=== PATIENT | female | born 1960 | race Caucasian/White ===

== ENCOUNTER 2021-12-24 20:13 | Observation (INO) ==
[2021-12-24] MEDS ORDERED: SODIUM CHLORIDE 0.9% 1,000 ML IV STA (21:04)
[2021-12-24 21:05] LABS: Basophils # 0.1 10*3/uL (0.0-0.2); Basophils % 0.8 % (0.0-0.8); Eosinophils # 0.2 10*3/uL (0.0-0.87); Eosinophils % 2.7 % (0.00-10.9); Hematocrit 41.1 VOL% (35.7-47.0); Hemoglobin 13.3 GM/DL (12.0-16.0); Immature Granulocytes % 0.5 %; Immature Granulocytes Absolute 0.03 #; Lymphocytes # 2.4 10*3/uL (1.4-4.0); Lymphocytes % 37.6 % (21.3-54.2); Mean Corpuscular HGB Conc 32.4 GM/DL (32-36); Mean Corpuscular Volume 91.7 FL (87-102); Monocytes # 0.5 10*3/uL (0.11-0.8); Monocytes % 8.3 % (1.7-12.7); Neutrophils % 50.1 % (38.7-73.9); Platelet Count 269 T/CUMM (130-400); Red Blood Count 4.48 MC/CUMM (3.8-5.5); Red Cell Distribution Width 12.9 % (9.3-17.3); White Blood Count 6.4 T/CUMM (4-12)
[2021-12-24 21:17] LABS: PT Patient Result 11.1 SECS (10.5-12.0); Partial Thromboplastin Time 30.8 SECS (23.8-32.1)
[2021-12-24 21:37] LABS: Alanine Aminotransferase < 6 U/L (13-56); Albumin 3.5 G/DL (3.4-5.0); Alkaline Phosphatase 100 U/L (45-117); Aspartate Amino Transferase 12 U/L (0-37); Bilirubin,Total < 0.39 MG/DL (0.20-1.00); Blood Urea Nitrogen 13 MG/DL (7-18); Calcium 8.8 MG/DL (8.5-10.1); Carbon Dioxide 22 MMOL/L (21-32); Chloride 110 MMOL/L (98-107); Glucose 177 MG/DL (74-106); Osmolality,Calculated 282.4 MOS/KG (273-304); Potassium 3.8 MMOL/L (3.5-5.1); Sodium 140 MMOL/L (136-145); Total Protein 6.9 G/DL (6.4-8.2)
[2021-12-24 21:52] LABS: Thyroid Stimulating Hormone 0.575 uIU/ml (0.358-3.74)
[2021-12-24 22:02] LABS: Glucose,Urine (UA) Negative (Negative); Hyaline Casts,Urine 84 /LPF (0-3); Ketones,Urine 15 mg/dL (Negative); Mucus,Urine Many /LPF (Occasional); Protein,Urine 30 mg/dL (Negative); RBC,Urine 9 /HPF (0-4); Squamous Epithelial Cell,Urine Occasional /HPF (0-10); Urine Appearance Clear (Clear); Urine Color Yellow (Yellow); Urine Specific Gravity >= 1.030 (1.001-1.035); Urine pH 5.5 (4.5-8.0)
[2021-12-24 22:03] LABS: Bilirubin,Urine Small mg/dL (Negative); Blood, Urine Trace mg/dL (Negative); Nitrite,Urine Negative (Negative)
[2021-12-24] MEDS ORDERED: NICOTINE 21 MG/24 HR PATCH TRANSDERM STA (22:31)
[2021-12-24 22:33] LABS: Barbiturates Screen,Urine Negative (Negative); Benzodiazepines Screen,Urine Positive (Negative); Cannabinoid Screen,Urine Negative (Negative); Opiate Screen,Urine Negative (Negative); Phencyclidine Screen,Urine Negative (Negative)
[2021-12-25] MEDS ORDERED: NICOTINE 21 MG/24 HR PATCH TRANSDERM PRN (00:30)
[2021-12-25] MEDS ORDERED: ALBUTEROL 2.5 MG/3 ML NEB RESP TX PRN (00:30)
[2021-12-25] MEDS ORDERED: GLUCAGON 1 MG VIAL IM PRN (00:30)
[2021-12-25] MEDS ORDERED: DEXTROSE 10% 250 ML BAG IV PRN (00:50)
[2021-12-25] MEDS: LACTATED RINGERS 1,000 ML IV SCH ×2 (02:00→11:38)
[2021-12-25 04:58] LABS: Basophils % 0.7 % (0.0-0.8); Eosinophils # 0.2 10*3/uL (0.0-0.87); Eosinophils % 3.4 % (0.00-10.9); Hemoglobin 12.4 GM/DL (12.0-16.0); Immature Granulocytes % 0.3 %; Immature Granulocytes Absolute 0.02 #; Lymphocytes # 2.9 10*3/uL (1.4-4.0); Lymphocytes % 49.1 % (21.3-54.2); Mean Corpuscular HGB Conc 31.8 GM/DL (32-36); Mean Corpuscular Volume 94.2 FL (87-102); Monocytes # 0.6 10*3/uL (0.11-0.8); Neutrophils % 36.5 % (38.7-73.9); Platelet Count 246 T/CUMM (130-400); Red Blood Count 4.14 MC/CUMM (3.8-5.5); Red Cell Distribution Width 13.1 % (9.3-17.3); White Blood Count 5.9 T/CUMM (4-12)
[2021-12-25 05:19] LABS: Calcium 8.8 MG/DL (8.5-10.1); Potassium 3.4 MMOL/L (3.5-5.1)
[2021-12-25 05:27] LABS: Atypical Lymphocytes Few; Eosinophils 6 % (0-10); Lymphocytes 51 % (20-55); Platelet Estimate Normal; Total Cells Counted 100
[2021-12-25] MEDS ORDERED: POTASSIUM CHLORIDE 20 MEQ TABLET PO ONE (08:20)
[2021-12-25] MEDS ORDERED: FLUTICASONE 50 MCG NASAL SPRAY 16 GM BOTTLE BOTH NARES PRN (08:21)
[2021-12-25] MEDS: INSULIN REGULAR 100 UNIT/ML SUBCUT SCH ×4 (08:25→20:56)
[2021-12-25] MEDS ORDERED: MIDODRINE 5 MG TABLET ONE (08:50)
[2021-12-25] MEDS: CLOPIDOGREL 75 MG TABLET PO SCH (09:00)
[2021-12-25] MEDS: PANTOPRAZOLE 40 MG TABLET PO SCH (09:00)
[2021-12-25] MEDS: ASPIRIN EC 81 MG TABLET PO SCH (09:00)
[2021-12-25] MEDS: DOCUSATE SODIUM 100 MG CAPSULE PO SCH ×2 (09:00→20:51)
[2021-12-25] MEDS: MIDODRINE 5 MG TABLET PO SCH ×3 (11:47→20:52)
[2021-12-25] MEDS: CARBIDOPA/LEVODOPA 25-100 MG TABLET PO SCH ×3 (11:59→17:15)
[2021-12-25] MEDS: ACETAMINOPHEN 325 MG TABLET PO PRN (13:03)
[2021-12-25] MEDS ORDERED: DIAZEPAM 5 MG TABLET PO PRN ×5 (13:39→14:30)
[2021-12-25] MEDS: INSULIN NPH/REGULAR 70/30 100 UNIT/ML SUBCUT SCH (17:15)
[2021-12-25] MEDS: ONDANSETRON 4 MG/2 ML VIAL IV PRN ×2 (17:15→21:22)
[2021-12-25] MEDS ORDERED: SIMVASTATIN 10 MG TABLET PO SCH (21:00)
[2021-12-25] MEDS ORDERED: QUEtiapine 100 MG TABLET PO SCH (21:00)
[2021-12-25] MEDS ORDERED: DIAZEPAM 5 MG TABLET PO SCH (21:00)
[2021-12-26] MEDS ORDERED: FINERENONE 10 MG PO SCH (06:00)
[2021-12-26 06:03] LABS: Basophils % 0.7 % (0.0-0.8); Eosinophils # 0.2 10*3/uL (0.0-0.87); Eosinophils % 3.4 % (0.00-10.9); Hematocrit 38.6 VOL% (35.7-47.0); Hemoglobin 12.3 GM/DL (12.0-16.0); Immature Granulocytes % 0.2 %; Immature Granulocytes Absolute 0.01 #; Lymphocytes # 2.6 10*3/uL (1.4-4.0); Lymphocytes % 48.4 % (21.3-54.2); Mean Corpuscular HGB Conc 31.9 GM/DL (32-36); Mean Corpuscular Volume 93.2 FL (87-102); Mean Platelet Volume 10.4 FL (9.6-12.0); Monocytes # 0.5 10*3/uL (0.11-0.8); Monocytes % 9.3 % (1.7-12.7); Platelet Count 251 T/CUMM (130-400); Red Blood Count 4.14 MC/CUMM (3.8-5.5); White Blood Count 5.4 T/CUMM (4-12)
[2021-12-26 06:21] LABS: Osmolality,Calculated 285.8 MOS/KG (273-304); Potassium 3.6 MMOL/L (3.5-5.1)
[2021-12-26 06:29] LABS: Eosinophils 5 % (0-10); Lymphocytes 49 % (20-55); Platelet Estimate Adequate; Total Cells Counted 100
[2021-12-26] MEDS: INSULIN REGULAR 100 UNIT/ML SUBCUT SCH ×2 (08:32→12:00)
[2021-12-26] MEDS: CARBIDOPA/LEVODOPA 25-100 MG TABLET PO SCH ×3 (09:30→14:18)
[2021-12-26] MEDS: ASPIRIN EC 81 MG TABLET PO SCH (09:30)
[2021-12-26] MEDS: MIDODRINE 5 MG TABLET PO SCH ×2 (09:31→15:04)
[2021-12-26] MEDS: PANTOPRAZOLE 40 MG TABLET PO SCH (09:31)
[2021-12-26] MEDS: CLOPIDOGREL 75 MG TABLET PO SCH (09:31)
[2021-12-26] MEDS: DOCUSATE SODIUM 100 MG CAPSULE PO SCH (09:32)
[2021-12-26] MEDS: INSULIN NPH/REGULAR 70/30 100 UNIT/ML SUBCUT SCH (09:50)
[2021-12-26 13:46] VITALS: BP 142/65
[2021-12-26] MEDS: ACETAMINOPHEN 325 MG TABLET PO PRN (15:05)
== END 2021-12-26 16:47 | disposition home or self-care (01) ==
LOC: EDUNIT# → EDBD → N.EDINP 20:13 → N.ED 20:13 → N.TELES 12-25 18:47
PROVIDERS: ADMIT Internal Medicine; ATTEND Internal Medicine